=== PATIENT | male | born 1960 | race Caucasian/White ===

== ENCOUNTER 2016-10-06 14:03 | Emergency (ER) | payer BC ==
[~2016-10-06] VITALS: Ht 165.1 cm; Wt 100.0 kg
[2016-10-06 14:35] LABS: BASOPHIL % 0.8 % (0-2); PLATELET COUNT 237 x10^3mcL (130-400)
[2016-10-06 14:49] LABS: CALCIUM 8.9 mg/dL (8.5-10.1); CARBON DIOXIDE 29.5 mmol/L (21-32); CHLORIDE SERUM 104 mmol/L (98-107); GFR1 > 60 mL/min; GLUCOSE SERUM 212 mg/dL (74-106); SODIUM SERUM 141 mmol/L (136-145)
[2016-10-06 14:51] LABS: C REACTIVE PROTEIN 1.1 mg/dL (<=0.9)
[2016-10-06 14:56] LABS: ALBUMIN 3.9 g/dL (3.4-5.0); ALKALINE PHOSPHATASE 76 U/L (46-116); ALT/SGPT 55 U/L (16-63); AST/SGOT 33 U/L (15-37); TOTAL PROTEIN, SERUM 7.3 g/dL (6.4-8.2)
[2016-10-06 15:05] LABS: FREE T4 1.04 ng/dL (0.76-1.46); FREE THYROXINE INDEX 2.6 ug/dL (1.4-4.5); T4(THYROXINE) 8.2 ug/dL (4.7-13.3)
[2016-10-06 15:14] LABS: T3 TOTAL 1.03 ng/mL
[2016-10-06 16:49] VITALS: BP 144/60
== END 2016-10-06 16:59 | disposition home or self-care (01) ==
LOC: ED 14:03
PROVIDERS: Specialist
DX: R07.89 Other chest pain (principal); E11.9 Type 2 diabetes mellitus without complications; E66.9 Obesity, unspecified; E78.00 Pure hypercholesterolemia, unspecified; E78.1 Pure hyperglyceridemia
CPT/HCPCS: 83880; 84439; Q0092